=== PATIENT | female | born 1940 | race Caucasian/White ===

== ENCOUNTER 2016-08-25 08:28 | Observation (INO) | payer MEDICARE ==
[2016-08-22 16:03] VITALS: BP 130/60
[2016-08-22 16:05] LABS: HEMOGLOBIN 13.1 g/dL (11.7-16.4)
[2016-08-22 16:15] LABS: ASPARTATE AMINO TRANSFERASE 16 U/L (15-37); BLOOD UREA NITROGEN 11 mg/dL (7-18)
[~2016-08-25] VITALS: Ht 162.6 cm; Wt 69.2 kg
[~2016-08-25 08:28] MED LIST: ALBU8.5H3 INH; LACT1CAP37 PO; LEVO75TA5 PO; MULT-82 PO; RIVA20TA PO; SIMV20TA3 PO; SOTA160T13 PO; SOTA80TA18 PO; SOTA80TA19 PO; TIOT4MIS5 INH; VORT10TA PO; ZOLP10TA PO; [UNRECOGNIZED DRUG - CODE] PO
[2016-08-25] MEDS: SODIUM CHLORIDE 0.9% 1,000 ML IV SCH ×2 (09:02→17:02)
[2016-08-25] MEDS ORDERED: ONDANSETRON 2MG/ML, 2ML ONE (09:19)
[2016-08-25] MEDS ORDERED: ONDANSETRON 2MG/ML, 2ML IVPush ONE (09:30)
[2016-08-25] MEDS ORDERED: CEFAZOLIN PMX 1GM/50ML 50 ML IVPB ONE (09:30)
[2016-08-25] MEDS ORDERED: CEFAZOLIN PMX 1GM/50ML 50 ML ONE (09:39)
[2016-08-25] MEDS ORDERED: MIDAZOLAM 1 MG/ML, 5ML ONE (09:39)
[2016-08-25] MEDS ORDERED: FENTANYL PF 100 MCG/2ML ONE (09:39)
[2016-08-25] MEDS ORDERED: LIDOCAINE 2%, 20ML ONE (09:39)
[2016-08-25] MEDS ORDERED: CEFAZOLIN 1,000 MG ONE (09:39)
[2016-08-25] MEDS ORDERED: ACETAMINOPHEN 500 MG TABLET PO PRN (11:00)
[2016-08-25] MEDS ORDERED: HYDROcodone/APAP 5/325 TABLET PO PRN (11:00)
[2016-08-25] MEDS ORDERED: ZOLPIDEM 5MG TABLET PO PRN (11:00)
[2016-08-25 16:16] VITALS: BP 118/75
[2016-08-25] MEDS ORDERED: IPRATROPIUM 0.5 MG/2.5 ML INHA NPPB SCH (17:00)
[2016-08-25] MEDS ORDERED: ALBUTEROL SULFATE 2.5 MG/3 ML NPPB PRN (17:00)
[2016-08-25 18:05] VITALS: BP 120/84
[2016-08-25] MEDS: SOTALOL 80MG TABLET PO SCH (18:08)
[2016-08-25] MEDS: CEFAZOLIN PMX 1GM/50ML 50 ML IVPB SCH (18:09)
[2016-08-25 20:07] VITALS: BP 108/74
[2016-08-25] MEDS ORDERED: SIMVASTATIN 20 MG TABLET PO SCH (21:00)
[2016-08-25] MEDS ORDERED: ZOLPIDEM 10MG TABLET PO PRN (21:00)
[2016-08-25] MEDS: SODIUM CHLORIDE FLUSH 10ML SYR IVF SCH (21:00)
[2016-08-26 02:58] VITALS: BP 101/74
[2016-08-26] MEDS: CEFAZOLIN PMX 1GM/50ML 50 ML IVPB SCH (03:06)
[2016-08-26] MEDS: SODIUM CHLORIDE 0.9% 1,000 ML IV SCH ×2 (03:13→09:02)
[2016-08-26] MEDS ORDERED: LEVOTHYROXINE 75 MCG TABLET PO SCH (06:30)
[2016-08-26 07:08] VITALS: BP 100/67
[2016-08-26] MEDS ORDERED: MULTIVITAMIN 1 TABLET PO SCH (09:00)
[2016-08-26] MEDS ORDERED: VORTIOXETINE HYDROBROMIDE 20 MG HOMEMEDPO SCH (09:00)
[2016-08-26] MEDS ORDERED: RIVAROXABAN 20 MG TABLET PO SCH (09:00)
[2016-08-26] MEDS ORDERED: LACTOBACILLUS CHEW TABLET PO SCH (09:00)
[2016-08-26] MEDS: SODIUM CHLORIDE FLUSH 10ML SYR IVF SCH (09:01)
[2016-08-26] MEDS: SOTALOL 80MG TABLET PO SCH (09:02)
[2016-08-26] MEDS ORDERED: DIGO250T PO (09:44)
[2016-08-26] MEDS ORDERED: DIGOXIN 0.25 MG/ML, 2ML IVPush ONE ×2 (10:00→14:00)
[2016-08-26 11:17] VITALS: BP 100/71
[2016-08-26 13:01] VITALS: BP 100/69
[2016-08-27] MEDS ORDERED: DIGOXIN 0.25 MG TABLET PO SCH (09:00)
== END 2016-08-26 15:19 | disposition home or self-care (01) ==
LOC: STAR 08:28 → ORIP 10:41 → 5SO 16:10
PROVIDERS: ADMIT Internal Medicine Cardiovascular Disease; ATTEND Internal Medicine Cardiovascular Disease
DX: I49.5 Sick sinus syndrome (principal); I48.0 Paroxysmal atrial fibrillation; E78.5 Hyperlipidemia, unspecified; J44.1 Chronic obstructive pulmonary disease with (acute) exacerbation
CPT/HCPCS: 33208; 36415; 71010; 71020; 80053; 85025; 85610; 85730; 87324; 94640; 96365; 96375; 96376; C1779; C1785; C1892; G0378; J0690; J1160; J2250; J2405; J3010; J3490; J7030; J7644

== ENCOUNTER 2016-11-25 09:00 | Inpatient (IN) | payer MEDICARE ==
[~2016-11-25] VITALS: Ht 162.6 cm; Wt 66.0 kg
[~2016-11-25 09:00] MED LIST changes: +DIGO250T PO
[2016-11-25 10:27] VITALS: BP 112/62
[2016-11-25] MEDS ORDERED: ZOLPIDEM 5MG TABLET PO PRN (11:00)
[2016-11-25] MEDS ORDERED: ACETAMINOPHEN 650 MG/20.3 ML UDC PO PRN (11:00)
[2016-11-25] MEDS ORDERED: ONDANSETRON 2MG/ML, 2ML IV PRN (11:00)
[2016-11-25] MEDS ORDERED: PLEASE ENTER HEIGHT AND WEIGHT MC SCH (11:00)
[2016-11-25] MEDS ORDERED: BISACODYL 5 MG EC TABLET PO PRN (11:00)
[2016-11-25] MEDS: AMIODARONE 200 MG TABLET PO SCH ×3 (12:01→21:10)
[2016-11-25 12:26] LABS: BLOOD UREA NITROGEN 10 mg/dL (7-18)
[2016-11-25 14:00] VITALS: BP 120/75
[2016-11-25] MEDS ORDERED: RIVAROXABAN 20 MG TABLET PO SCH (17:00)
[2016-11-25 19:36] VITALS: BP 113/75
[2016-11-25] MEDS ORDERED: SIMVASTATIN 20 MG TABLET PO SCH (21:00)
[2016-11-25] MEDS: SODIUM CHLORIDE FLUSH 10ML SYR IVF SCH (21:09)
[2016-11-26 02:39] VITALS: BP 110/67
[2016-11-26] MEDS ORDERED: LEVOTHYROXINE 75 MCG TABLET PO SCH (06:00)
[2016-11-26 08:45] VITALS: BP 114/63
[2016-11-26] MEDS: AMIODARONE 200 MG TABLET PO SCH (08:51)
[2016-11-26] MEDS: SODIUM CHLORIDE FLUSH 10ML SYR IVF SCH (08:52)
[2016-11-26] MEDS ORDERED: AMIO200T42 PO (11:19)
[2016-11-26 13:52] VITALS: BP 102/56
== END 2016-11-26 15:47 | disposition home or self-care (01) | DRG 309 ==
LOC: 5SO 09:36
PROVIDERS: ADMIT Internal Medicine Cardiovascular Disease; ATTEND Internal Medicine Cardiovascular Disease
DX: I48.91 Unspecified atrial fibrillation (principal); D68.69 Other thrombophilia; J44.9 Chronic obstructive pulmonary disease, unspecified; E03.9 Hypothyroidism, unspecified; I49.5 Sick sinus syndrome; Z95.0 Presence of cardiac pacemaker; Z79.01 Long term (current) use of anticoagulants
CPT/HCPCS: 36415; 71020; 80048; 84439; 84443; 85014; 85018; 93005

== ENCOUNTER 2016-12-19 17:19 | Inpatient (IN) | payer MEDICARE ==
[~2016-12-19] VITALS: Ht 162.6 cm; Wt 67.5 kg
[~2016-12-19 17:19] MED LIST changes: +AMIO200T42 PO
[2016-12-19] MEDS ORDERED: PLEASE ENTER HEIGHT AND WEIGHT MC SCH (18:00)
[2016-12-19 18:08] LABS: ASPARTATE AMINO TRANSFERASE 26 U/L (15-37); BLOOD UREA NITROGEN 10 mg/dL (7-18)
[2016-12-19] MEDS ORDERED: DILTIAZEM 5 MG/ML, 5ML IVPush ONE (18:30)
[2016-12-19] MEDS ORDERED: ALBUTEROL SULFATE 2.5 MG/3 ML NPPB PRN (19:00)
[2016-12-19 19:45] VITALS: BP 114/70
[2016-12-19] MEDS ORDERED: SIMVASTATIN 20 MG TABLET PO SCH (21:00)
[2016-12-19] MEDS ORDERED: TEMAZEPAM 15 MG CAPSULE PO PRN (21:30)
[2016-12-19] MEDS ORDERED: BRINTELLIX PO SCH (21:30)
[2016-12-20 02:49] VITALS: BP 123/83
[2016-12-20] MEDS ORDERED: LEVOTHYROXINE 75 MCG TABLET PO SCH (06:00)
[2016-12-20 06:53] VITALS: BP 97/63
[2016-12-20] MEDS ORDERED: MIDAZOLAM 1 MG/ML, 5ML IVPush ONE (08:30)
[2016-12-20] MEDS ORDERED: FENTANYL PF 100 MCG/2ML IVPush ONE (08:30)
[2016-12-20] MEDS ORDERED: AMIODARONE 200 MG TABLET PO SCH ×2 (09:00→09:12)
[2016-12-20] MEDS ORDERED: RIVAROXABAN 20 MG TABLET PO SCH (09:00)
[2016-12-20] MEDS ORDERED: ANORO INH SCH (09:00)
[2016-12-20] MEDS ORDERED: BRINTELLIX PO SCH (09:00)
[2016-12-20] MEDS ORDERED: AMIO200T42 PO (10:36)
[2016-12-20 11:00] VITALS: BP 100/66
[2016-12-20 12:32] VITALS: BP 112/77
[2016-12-20] MEDS ORDERED: BRINTELLIX 10 MG PO SCH (21:00)
== END 2016-12-20 12:54 | disposition home or self-care (01) | DRG 309 ==
LOC: 5SO 17:19
PROVIDERS: ADMIT Internal Medicine Cardiovascular Disease; ATTEND Internal Medicine Cardiovascular Disease
PROC: 5A2204Z Restoration of Cardiac Rhythm, Single (ICD-10-PCS; principal; 2016-12-19)
DX: I48.2 Chronic atrial fibrillation (principal); D68.69 Other thrombophilia; E03.9 Hypothyroidism, unspecified; I49.5 Sick sinus syndrome; J44.9 Chronic obstructive pulmonary disease, unspecified; Z95.0 Presence of cardiac pacemaker
CPT/HCPCS: 36415; 80053; 85025; J2250; J3010

== ENCOUNTER 2016-12-30 06:58 | Observation (INO) | payer MEDICARE ==
[2016-12-29 13:07] VITALS: BP 122/71
[2016-12-29 14:03] LABS: ASPARTATE AMINO TRANSFERASE 21 U/L (15-37); BLOOD UREA NITROGEN 17 mg/dL (7-18)
[~2016-12-30] VITALS: Ht 162.6 cm; Wt 68.0 kg
[~2016-12-30 06:58] MED LIST changes: +AMIO400T4 PO; +TIOT18CA INH; +UMEC1DIS INH
[2016-12-30] MEDS ORDERED: SODIUM CHLORIDE 0.9% 1,000 ML IV SCH (07:10)
[2016-12-30] MEDS ORDERED: FENTANYL PF 100 MCG/2ML ONE (07:54)
[2016-12-30] MEDS ORDERED: MIDAZOLAM 1 MG/ML, 5ML ONE (07:55)
[2016-12-30] MEDS ORDERED: LIDOCAINE 2%, 20ML ONE (07:55)
[2016-12-30] MEDS ORDERED: ONDANSETRON 2MG/ML, 2ML IVPush PRN (09:00)
[2016-12-30] MEDS ORDERED: ZOLPIDEM 5MG TABLET PO PRN (09:00)
[2016-12-30] MEDS ORDERED: ACETAMINOPHEN 325 MG TABLET PO PRN (09:00)
[2016-12-30] MEDS ORDERED: ZOLPIDEM 10MG TABLET PO PRN (10:30)
[2016-12-30 14:55] VITALS: BP 99/63
[2016-12-30 19:00] VITALS: BP 100/58
[2016-12-30] MEDS ORDERED: RIVAROXABAN 20 MG TABLET PO SCH (21:00)
[2016-12-30] MEDS ORDERED: BRINTELLIX 20 MG PO SCH (21:00)
[2016-12-30] MEDS ORDERED: SIMVASTATIN 20 MG TABLET PO SCH (21:00)
[2016-12-31 02:00] VITALS: BP 91/59
[2016-12-31 04:22] VITALS: BP 91/59
[2016-12-31] MEDS ORDERED: LEVOTHYROXINE 75 MCG TABLET PO SCH (06:00)
[2016-12-31 08:00] VITALS: BP 99/65
[2016-12-31] MEDS ORDERED: ANORO ELLIPTA INH SCH (09:00)
[2016-12-31] MEDS ORDERED: AMIODARONE 200 MG TABLET PO SCH (09:00)
[2016-12-31] MEDS ORDERED: PROAIR INH SCH (09:00)
== END 2016-12-31 10:15 | disposition home or self-care (01) ==
LOC: CACL 06:58 → ORIP 09:07 → 5SO 10:03 → DCLOUNGE 12-31 10:00
PROVIDERS: ADMIT Internal Medicine Cardiovascular Disease; ATTEND Internal Medicine Cardiovascular Disease
DX: I48.0 Paroxysmal atrial fibrillation (principal); I44.2 Atrioventricular block, complete; R00.0 Tachycardia, unspecified; F32.9 Major depressive disorder, single episode, unspecified
CPT/HCPCS: 36415; 71020; 80053; 84436; 84481; 85025; 85610; 85730; 93005; 93650; 99156; C1894; C2630; G0378; J2250; J3010; J3490

== ENCOUNTER → 2017-02-24 | Outpatient (CLI) | payer MEDICARE ==
[~2017-02-24] MED LIST changes: -ALBU8.5H3 INH; +ALBU8.5H8 INH; +MULT-224 PO; -MULT-82 PO
== END | disposition home or self-care (01) ==
LOC: CFH 15:02
PROVIDERS: ATTEND Family Medicine
DX: R59.1 Generalized enlarged lymph nodes (principal)
CPT/HCPCS: 76536

== ENCOUNTER → 2018-09-06 | Outpatient (CLI) | payer MEDICARE ==
[~2018-09-06] MED LIST changes: -AMIO400T4 PO; +AMIO400T5 PO; +GADOBUTROL 7.5 MMOL/7.5 ML PFS ONE; -MULT-224 PO; +MULT-642 PO
[2018-09-06 12:47] LABS: CREATININE 1.17 mg/dL (0.55-1.02)
== END | disposition home or self-care (01) ==
LOC: RAD 11:59
PROVIDERS: ATTEND Family Medicine
DX: H70.893 Other mastoiditis and related conditions, bilateral (principal); D33.2 Benign neoplasm of brain, unspecified
CPT/HCPCS: 36415; 70553; 82565; A9585

== ENCOUNTER 2018-12-28 12:14 | Outpatient (CLI) | payer MEDICARE | END 2018-12-28 23:59 | disposition home or self-care (01) | LOC: CFH 12:14 | PROVIDERS: ATTEND Nurse Practitioner | DX: Z12.31 Encounter for screening mammogram for malignant neoplasm of breast (principal) | CPT/HCPCS: 77063; 77067 ==

== ENCOUNTER → 2019-12-26 | Outpatient (CLI) | payer MEDICARE ==
[~2019-12-26] MED LIST changes: -DIGO250T PO; +DIGO250T3 PO; -GADOBUTROL 7.5 MMOL/7.5 ML PFS ONE; +GADOTERATE 7.5 MMOL/15 ML SYR ONE; +SIMV20TA19 PO; -SIMV20TA3 PO
== END | disposition home or self-care (01) ==
LOC: RAD 13:02
PROVIDERS: ATTEND Family Medicine
DX: G31.89 Other specified degenerative diseases of nervous system (principal); D32.9 Benign neoplasm of meninges, unspecified; I73.9 Peripheral vascular disease, unspecified
CPT/HCPCS: 70553; A9575

== ENCOUNTER → 2020-01-05 | Outpatient (CLI) | payer MEDICARE ==
[~2020-01-05] MED LIST changes: -GADOTERATE 7.5 MMOL/15 ML SYR ONE
== END | disposition home or self-care (01) ==
LOC: RAD 13:28
PROVIDERS: ATTEND Physical Medicine & Rehabilitation
DX: M47.817 Spondylosis without myelopathy or radiculopathy, lumbosacral region (principal); M51.36 Other intervertebral disc degeneration, lumbar region; G03.8 Meningitis due to other specified causes; M48.07 Spinal stenosis, lumbosacral region
CPT/HCPCS: 72148

== ENCOUNTER → 2020-11-26 | Outpatient (CLI) | payer MEDICARE ==
[~2020-11-26] MED LIST changes: -LACT1CAP37 PO; +LACT1CAP47 PO
== END | disposition home or self-care (01) ==
LOC: CFH 13:25
PROVIDERS: ATTEND Internal Medicine Cardiovascular Disease
DX: I08.3 Combined rheumatic disorders of mitral, aortic and tricuspid valves (principal); I25.10 Atherosclerotic heart disease of native coronary artery without angina pectoris; I48.0 Paroxysmal atrial fibrillation; J44.9 Chronic obstructive pulmonary disease, unspecified
CPT/HCPCS: 93306